=== PATIENT | female | born 1965 | race Caucasian/White ===

== ENCOUNTER 2017-12-30 07:59 | Emergency (ER) | payer MEDICAID ==
[2017-12-30] MEDS ORDERED: KETOROLAC TROMETHAMINE 60 MG/2 ML SDV IM ONE (09:11)
--- NOTE | 2017-12-30 09:15 | ER Document Report ---
HPI - HPI Patient complains to provider of: Labial pain Onset: Other - 5 days Onset/Duration: Persistent Quality of pain: Burning Pain Level: 5 Context: Patient states that she had an incision and drainage procedure performed on a Bartholin gland abscess 5 days ago at her [employer] office. Patient states she had a Word catheter placed. Patient denies any fever or urinary symptoms at this time. Patient complains of the pain at the location site and the palpation of a lump. Associated Symptoms: Other - Labial pain. denies: Fever Exacerbated by: Movement Relieved by: Denies Similar symptoms previously: No Recently seen / treated by doctor: Yes - ROS ROS below otherwise negative: Yes Systems Reviewed and Negative: Yes All other systems reviewed and negative - CONSTITUTIONAL Constitutional: DENIES: Fever, Chills - URINARY Urinary: DENIES: Dysuria, Urgency, Frequency - REPRODUCTIVE Reproductive: DENIES: : Notes: Pain to labia - MUSCULOSKELETAL Musculoskeletal: DENIES: Back Pain - DERM Skin Color: Normal Past Medical History - General Information source: Patient - Social History Smoking Status: Never Smoker Frequency of alcohol use: None Drug Abuse: None Occupation: None Lives with: Family Family History: Reviewed & Not Pertinent Patient has suicidal ideation: No Patient has homicidal ideation: No - Past Medical History Cardiac Medical History: Reports: Hx Hypertension - high cholesterol Denies: Hx Coronary Artery Disease, Hx Heart Attack Pulmonary Medical History: Reports: Hx Asthma, Hx Bronchitis, Hx Pneumonia - walking pneumonia Denies: Hx COPD Neurological Medical History: Denies: Hx Cerebrovascular Accident, Hx Seizures Endocrine Medical History: Reports: Hx Hypothyroidism Renal/ Medical History: Denies: Hx Peritoneal Dialysis Musculoskeltal Medical History: Reports Hx Arthritis - "mostly in arms", back problems, Reports Hx Musculoskeletal Trauma Psychiatric Medical History: Reports: Hx Depression Past Surgical History: Reports: Hx Cholecystectomy, Hx Gynecologic Surgery - ovarian cyst removed, batholin cyst removal, Hx Tubal Ligation - Immunizations Immunizations up to date: Yes Hx Diphtheria, Pertussis, Tetanus Vaccination: No Vertical Provider Document - CONSTITUTIONAL Agree With Documented VS: Yes Exam Limitations: No Limitations General Appearance: WD/WN, No Apparent Distress - INFECTION CONTROL TRAVEL OUTSIDE OF THE [place] IN LAST 30 DAYS: No - HEENT HEENT: Atraumatic, Normocephalic - NECK Neck: Normal Inspection, Supple - RESPIRATORY Respiratory: Breath Sounds Normal, No Respiratory Distress O2 Sat by Pulse Oximetry: 98 - CARDIOVASCULAR Cardiovascular: Regular Rate, Regular Rhythm - REPRODUCTIVE Female Genitalia: Abnormal Inspection - Patient with Word catheter to Bartholin' s gland area on the right side, minimal drainage noted from area, no surrounding erythema - BACK Back: Normal Inspection - MUSCULOSKELETAL/EXTREMETIES Musculoskeletal/Extremeties: KAELYN GOMES - NEURO Level of Consciousness: Awake, Alert, Appropriate Motor/Sensory: No Motor Deficit - DERM Integumentary: Warm, Dry, No Rash Course - Re-evaluation Re-evalutation: 12/30/17 09:12 Patient with a normal appearance to Word catheter and what appears to be a resolving Bartholin's gland abscess. No concern for worsening abscess or cellulitis at this time. Suspect that patient's pain symptoms are most likely attributed to the Word catheter itself. Lump that patient reports is the balloon to the Word catheter. 12/30/17 09:14 Controlled substance database reviewed 12/30/17 18:06 - Vital Signs Vital signs: Temp Pulse Resp BP Pulse Ox 98.5 F 76 20 145/92 H 98 12/30/17 08:04 12/30/17 08:04 12/30/17 08:04 12/30/17 08:04 12/30/17 08:04 Discharge - Discharge Clinical Impression: Elevated blood pressure reading, pain from word catheter , hx bartholin gland abscess Condition: Stable Disposition: HOME, SELF-CARE Instructions: Oral Narcotic Medication ([facility]), Toradol Injection ([facility]) Additional Instructions: Return immediately for any new or worsening symptoms Followup with your [employer] care provider, call tomorrow to make a followup appointment Prescriptions: Oxycodone HCl/Acetaminophen [Percocet 5-325 mg Tablet] 1 tab PO ASDIR PRN #12 tablet PRN Reason: Forms: Elevated Blood Pressure Referrals: EMIL VELAZQUEZ MD [Primary Care Provider] - Follow up tomorrow
[2017-12-30 09:59] VITALS: BP 121/84
== END 2017-12-30 09:59 | disposition home or self-care (01) ==
LOC: ER 07:59
DX: N75.1 Abscess of Bartholin's gland (principal); I10 Essential (primary) hypertension; E78.00 Pure hypercholesterolemia, unspecified; Z90.49 Acquired absence of other specified parts of digestive tract; Z98.51 Tubal ligation status
CPT/HCPCS: 99283; J1885

== ENCOUNTER 2018-02-15 12:30 | Observation (INO) | payer MEDICAID ==
[2018-02-15] MEDS ORDERED: ASPIRIN 81 MG TABLET, CHEWABLE PO ONE (12:56)
--- NOTE | 2018-02-15 13:03 | ER Document Report ---
ED Medical Screen (RME) - General Mode of Arrival: Ambulatory Information source: Patient TRAVEL OUTSIDE OF THE [place] IN LAST 30 DAYS: No - HPI Patient complains to provider of: Left chest pain Onset: Other - 3 weeks ago Associated Symptoms: Other - see notes above <MANAV MARR - Last Filed: 02/15/18 12:57> <APOORVALEVIDEEPA - Last Filed: 02/15/18 15:31> - General Chief Complaint: Chest Pain Stated Complaint: CHEST PAIN Time Seen by Provider: 02/15/18 12:51 Notes: 52 year old female with history of hypothyroidism (medicated with Levothyroxine) , hypertension, and borderline diabetes presents to the ED complaining of intermittent left chest pain that started 3 weeks ago and worsened last night. Patient describes the pain as a pressure. Patient additionally complains of headache and shortness of breath, but denies nausea, vomiting, or diaphoresis. (MANAV MARR) - Related Data Allergies/Adverse Reactions: codeine [Codeine] Allergy (Severe, Verified 02/15/18 12:57) nausea, dizzy Past Medical History - General Information source: Patient - Past Medical History Cardiac Medical History: Reports: Hx Hypertension - high cholesterol Denies: Hx Coronary Artery Disease, Hx Heart Attack Pulmonary Medical History: Reports: Hx Asthma, Hx Bronchitis, Hx Pneumonia - walking pneumonia Denies: Hx COPD Neurological Medical History: Denies: Hx Cerebrovascular Accident, Hx Seizures Endocrine Medical History: Reports: Hx Hypothyroidism Renal/ Medical History: Denies: Hx Peritoneal Dialysis Musculoskeltal Medical History: Reports Hx Arthritis - "mostly in arms", back problems, Reports Hx Musculoskeletal Trauma Psychiatric Medical History: Reports: Hx Depression Past Surgical History: Reports: Hx Cholecystectomy, Hx Gynecologic Surgery - ovarian cyst removed, batholin cyst removal, Hx Tubal Ligation - Immunizations Immunizations up to date: Yes Hx Diphtheria, Pertussis, Tetanus Vaccination: No <MANAV MARR - Last Filed: 02/15/18 12:57> Review of Systems - Review of Systems Constitutional: No symptoms reported. denies: Diaphoresis EENT: No symptoms reported Cardiovascular: See HPI, Chest pain Respiratory: See HPI, Short of breath Gastrointestinal: No symptoms reported. denies: Nausea, Vomiting Genitourinary: No symptoms reported Female Genitourinary: No symptoms reported Musculoskeletal: No symptoms reported Skin: No symptoms reported Hematologic/Lymphatic: No symptoms reported Neurological/Psychological: See HPI, Headaches -: Yes All other systems reviewed and negative <MANAV MARR - Last Filed: 02/15/18 12:57> Physical Exam - General General appearance: Alert In distress: None - HEENT Head: Normocephalic, Atraumatic Eyes: Normal Extraocular movements intact: Yes Pupils: PERRL - Respiratory Respiratory status: No respiratory distress Breath sounds: Normal - Cardiovascular Rhythm: Regular Heart sounds: Normal auscultation Murmur: No <MANVA MARR - Last Filed: 02/15/18 12:57> - Vital signs Vitals: Temp Pulse Resp BP Pulse Ox 98.3 F 86 18 132/97 H 97 02/15/18 12:45 02/15/18 12:45 02/15/18 12:45 02/15/18 12:45 02/15/18 12:45 Course - Laboratory Result Diagrams: 02/15/18 13:15 02/15/18 13:15 <DEEPA PINTO - Last Filed: 02/15/18 15:31> - Vital Signs Vital signs: Temp Pulse Resp BP Pulse Ox 98.3 F 86 18 132/97 H 97 02/15/18 12:45 02/15/18 12:45 02/15/18 12:45 02/15/18 12:45 02/15/18 12:45 - Laboratory Laboratory results interpreted by me: 02/15/18 02/15/18 13:15 13:15 RDW 15.0 H Calcium 10.3 H Scribe Documentation - Scribe Written by Benja:: Benja Witt, 02/15/2018 1330 acting as scribe for :: Ludy <MANAV MARR - Last Filed: 02/15/18 12:57>
[2018-02-15 13:31] LABS: ABSOLUTE BASOPHILS # (AUTO) 0.1 10^3/uL (0.0-0.2); ABSOLUTE EOSINOPHILS # (AUTO) 0.2 10^3/uL (0.0-0.6); ABSOLUTE MONOCYTES (AUTO) 0.6 10^3/uL (0.1-1.4); ABSOLUTE NEUT (AUTO) 3.5 10^3/uL (1.7-8.2); BASOPHILS % (AUTO) 1.1 % (0-2); EOSINOPHILS % (AUTO) 2.6 % (0-6); HEMATOCRIT 44.7 % (36.0-47.0); HEMOGLOBIN 15.1 g/dL (12.0-15.5); LYMPHOCYTES % (AUTO) 31.9 % (13-45); MEAN CORPUSCULAR HEMOGLOBIN 29.1 pg (27.0-33.4); MEAN CORPUSCULAR HGB CONC 33.7 g/dL (32.0-36.0); MEAN CORPUSCULAR VOLUME 86 fl (80-97); MONOCYTES % (AUTO) 9.9 % (3-13); PLATELET COUNT 433 10^3/uL (150-450); RED BLOOD COUNT 5.18 10^6/uL (3.72-5.28); SEGMENTED NEUTROPHILS % (AUTO) 54.5 % (42-78); TOTAL CELLS COUNTED % (AUTO) 100 %; WHITE BLOOD COUNT 6.3 10^3/uL (4.0-10.5)
[2018-02-15] MEDS ORDERED: NITROGLYCERIN 0.4 MG/TAB 25 TAB/BOTTLE SL ONE (13:33)
--- NOTE | 2018-02-15 13:34 | ER Document Report ---
ED General - General Chief Complaint: Chest Pain Stated Complaint: CHEST PAIN Time Seen by Provider: 02/15/18 12:51 Mode of Arrival: Ambulatory TRAVEL OUTSIDE OF THE [place] IN LAST 30 DAYS: No - HPI Notes: 52-year-old female with a past medical history of hypothyroidism presents today with complaints of left-sided chest pain she describes as pressure and heaviness with shortness of breath that started approximately 2 hours ago. Patient states she did have an episode last night which lasted about an hour. Patient reports she has had many episodes of this chest pain for the last 2 months, has never been seen by her primary provider for this until 2 weeks ago, she did see her primary care for something else, states she mentioned she had this chest pain and they did set her up for cardiac evaluation with [facility] for March 11. Patient has not tried any [id number] medication for this pain. Patient states chest pain is only on her left, pain does not radiate to her shoulder trauma or back. Patient states she only has shortness of breath when she is having chest pain. Patient reports she was a former smoker, smoked off and on for "years". Father has a history of hypertension, hyperlipidemia, CAD and [place]. Mother's history only positive for liver cancer. - Related Data Allergies/Adverse Reactions: codeine [Codeine] Allergy (Severe, Verified 02/15/18 12:57) nausea, dizzy Past Medical History - General Information source: Patient - Social History Smoking Status: Former Smoker Chew tobacco use (# tins/day): No Frequency of alcohol use: None Drug Abuse: None Family History: Reviewed & Not Pertinent Patient has suicidal ideation: No Patient has homicidal ideation: No - Past Medical History Cardiac Medical History: Reports: Hx Hypertension - high cholesterol Denies: Hx Coronary Artery Disease, Hx Heart Attack Pulmonary Medical History: Reports: Hx Asthma, Hx Bronchitis, Hx Pneumonia - walking pneumonia Denies: Hx COPD Neurological Medical History: Denies: Hx Cerebrovascular Accident, Hx Seizures Endocrine Medical History: Reports: Hx Hypothyroidism Renal/ Medical History: Denies: Hx Peritoneal Dialysis Musculoskeltal Medical History: Reports Hx Arthritis - "mostly in arms", back problems, Reports Hx Musculoskeletal Trauma Psychiatric Medical History: Reports: Hx Depression Past Surgical History: Reports: Hx Cholecystectomy, Hx Gynecologic Surgery - ovarian cyst removed, batholin cyst removal, Hx Tubal Ligation - Immunizations Immunizations up to date: Yes Hx Diphtheria, Pertussis, Tetanus Vaccination: No Review of Systems - Review of Systems Notes: REVIEW OF SYSTEMS: CONSTITUTIONAL : Denies fever, chills, or sweats. Denies recent illness. EENT: Denies eye, ear, throat, or mouth pain or symptoms. Denies nasal or sinus congestion or discharge. Denies throat, tongue, or mouth swelling or difficulty swallowing. CARDIOVASCULAR: reports. Denies palpitations or racing or irregular heart beat. Denies ankle edema. RESPIRATORY: Denies cough, cold, or chest congestion. Denies shortness of breath, difficulty breathing, or wheezing. GASTROINTESTINAL: Denies abdominal pain or distention. Denies nausea, vomiting , or diarrhea. Denies blood in vomitus, stools, or per rectum. Denies black, tarry stools. Denies constipation. GENITOURINARY: Denies difficulty urinating, painful urination, burning, frequency, blood in urine, or discharge. FEMALE GENITOURINARY: Denies vaginal bleeding, heavy or abnormal periods, irregular periods. Denies vaginal discharge or odor. MUSCULOSKELETAL: Denies back or neck pain or stiffness. Denies joint pain or swelling. SKIN: Denies rash, lesions or sores. HEMATOLOGIC : Denies easy bruising or bleeding. LYMPHATIC: Denies swollen, enlarged glands. NEUROLOGICAL: Denies confusion or altered mental status. Denies passing out or loss of consciousness. Denies dizziness or lightheadedness. Denies headache. Denies weakness or paralysis or loss of use of either side. Denies problems with gait or speech. Denies sensory loss, numbness, or tingling. Denies seizures. PSYCHIATRIC: Denies anxiety or stress. Denies depression, suicidal ideation, or homicidal ideation. ALL OTHER SYSTEMS REVIEWED AND NEGATIVE. PHYSICAL EXAMINATION: GENERAL: Well-appearing, well-nourished and in no acute distress. HEAD: Atraumatic, normocephalic. EYES: Pupils equal round and reactive to light, extraocular movements intact, conjunctiva are normal. ENT: Nares patent, oropharynx clear without exudates. Moist mucous membranes. NECK: Normal range of motion, supple without lymphadenopathy LUNGS: Breath sounds clear to auscultation bilaterally and equal. No wheezes rales or rhonchi. HEART: Regular rate and rhythm without murmurs ABDOMEN: Soft, nontender, nondistended abdomen. No guarding, no rebound. No masses appreciated. Female : deferred Musculoskeletal: Normal range of motion, no pitting or edema. No cyanosis. NEUROLOGICAL: Cranial nerves grossly intact. Normal speech, normal gait. Normal sensory, motor exams PSYCH: Normal mood, normal affect. SKIN: Warm, Dry, normal turgor, no rashes or lesions noted. Dictation was performed using [employer] voice recognition software Physical Exam - Vital signs Vitals: Temp Pulse Resp BP Pulse Ox 98.3 F 86 18 132/97 H 97 02/15/18 12:45 02/15/18 12:45 02/15/18 12:45 02/15/18 12:45 02/15/18 12:45 Course - Re-evaluation Re-evalutation: 02/15/18 16:53 A healthy 52-year-old female presents today with complaints of left-sided chest pain that started today. She has been having episodic chest pain for the last 2 months, has never had this evaluated by a provider. Her primary care provider did 2 weeks ago send a referral to [facility] cardiology for a consult. CBC negative for leukocytosis or anemia, CMP negative for hepatic or renal dysfunction, electrolytes normal. EKG negative for STEMI. 1st set of cardiac enzymes negative, chest x-ray negative for any acute findings. patient had relief with nitroglycerin and baby aspirin. Due to patient having chest pain relieved with nitroglycerin, patient benefit from further evaluation of unstable angina. Discussed case with hospitalist, basilic sounds, [employer] [id number], patient will be admitted to observation for further evaluation. 02/15/18 16:58 - Vital Signs Vital signs: Temp Pulse Resp BP Pulse Ox 98.3 F 86 18 132/97 H 97 02/15/18 12:45 02/15/18 12:45 02/15/18 12:45 02/15/18 12:45 02/15/18 12:45 - Laboratory Result Diagrams: 02/15/18 13:15 02/15/18 13:15 Laboratory results interpreted by me: 02/15/18 02/15/18 13:15 13:15 RDW 15.0 H Calcium 10.3 H - EKG Interpretation by Mo EKG shows normal: Sinus rhythm Rate: Normal Rhythm: NSR When compared to previous EKG there are: No significant change - non specific ST segment changes Discharge - Discharge Clinical Impression: Chest pain at rest, Angina at rest Condition: Good Disposition: ADMITTED OBSERVATION Admitting Provider: Hospitalist - Margarita Pabon NP Referrals: EMIL VELAZQUEZ MD [Primary Care Provider] - Follow up as needed
[2018-02-15 13:55] LABS: ALANINE AMINOTRANSFERASE 35 U/L (9-52); ALBUMIN 4.9 g/dL (3.5-5.0); ALKALINE PHOSPHATASE 103 U/L (38-126); ANION GAP 13 (5-19); ASPARTATE AMINO TRANSFERASE 26 U/L (14-36); BILIRUBIN,DIRECT 0.2 mg/dL (0.0-0.4); BILIRUBIN,TOTAL 0.5 mg/dL (0.2-1.3); BLOOD UREA NITROGEN 14 mg/dL (7-20); CALCIUM 10.3 mg/dL (8.4-10.2); CARBON DIOXIDE 29 mmol/L (22-30); CHLORIDE 103 mmol/L (98-107); CREATINE KINASE 72 U/L (30-135); GLUCOSE 101 mg/dL (75-110); POTASSIUM 4.6 mmol/L (3.6-5.0); SODIUM 144.6 mmol/L (137-145); TOTAL PROTEIN 7.9 g/dL (6.3-8.2)
[2018-02-15 14:07] LABS: CREATINE KINASE MB 0.24 ng/mL (<4.55); TROPONIN I < 0.012 ng/mL
--- NOTE | 2018-02-15 14:07 | RADIOLOGY REPORT (SQ) ---
EXAM DESCRIPTION: CHEST SINGLE VIEW COMPLETED DATE/TIME: 02/15/2018 1:55 pm REASON FOR STUDY: left sided chest pain COMPARISON: 01/20/2016 EXAM PARAMETERS: NUMBER OF VIEWS: One view. TECHNIQUE: Single frontal radiographic view of the chest acquired. RADIATION DOSE: NA LIMITATIONS: None. FINDINGS: LUNGS AND PLEURA: No opacities, masses or pneumothorax. No pleural effusion. MEDIASTINUM AND HILAR STRUCTURES: No masses. Contour normal. HEART AND VASCULAR STRUCTURES: Heart normal in size. Normal vasculature. BONES: No acute findings. HARDWARE: None in the chest. OTHER: No other significant finding. IMPRESSION: NO ACUTE RADIOGRAPHIC FINDING IN THE CHEST. TECHNICAL DOCUMENTATION: JOB ID: [id number] [employer]- All Rights Reserved Reading location - IP/workstation name: [email or web address]
--- NOTE | 2018-02-15 15:16 | EKG REPORT ---
SEVERITY:- NORMAL ECG - SINUS RHYTHM : Confirmed by: Jeanne Shah 15-Feb-2018 15:15:36
[2018-02-15] MEDS ORDERED: ALPRAZOLAM 0.5 MG TABLET PO ONE (17:49)
[2018-02-15] MEDS ORDERED: IBUPROFEN 600 MG TABLET PO ONE (18:10)
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
[2018-02-15] MEDS ORDERED: CYCLOBENZAPRINE HCL 10 MG TABLET PO PRN (18:11)
[2018-02-15] MEDS ORDERED: ALPRAZOLAM 0.5 MG TABLET PO PRN (18:15)
[2018-02-15] MEDS: NITROGLYCERIN 0.4 MG/TAB 25 TAB/BOTTLE SL PRN (21:29)
[2018-02-15 23:54] LABS: CREATINE KINASE MB < 0.22 ng/mL (<4.55); TROPONIN I < 0.012 ng/mL
[2018-02-16] MEDS ORDERED: ALPRAZOLAM 0.5 MG TABLET PO PRN (01:00)
[2018-02-16] MEDS ORDERED: CYCLOBENZAPRINE HCL 10 MG TABLET PO PRN (01:00)
[2018-02-16 06:06] LABS: ABSOLUTE BASOPHILS # (AUTO) 0.1 10^3/uL (0.0-0.2); ABSOLUTE EOSINOPHILS # (AUTO) 0.2 10^3/uL (0.0-0.6); ABSOLUTE LYMPHOCYTES (AUTO) 2.6 10^3/uL (0.5-4.7); ABSOLUTE MONOCYTES (AUTO) 0.8 10^3/uL (0.1-1.4); ABSOLUTE NEUT (AUTO) 3.5 10^3/uL (1.7-8.2); EOSINOPHILS % (AUTO) 2.9 % (0-6); HEMATOCRIT 40.1 % (36.0-47.0); HEMOGLOBIN 13.6 g/dL (12.0-15.5); LYMPHOCYTES % (AUTO) 36.4 % (13-45); MEAN CORPUSCULAR HGB CONC 33.9 g/dL (32.0-36.0); MEAN CORPUSCULAR VOLUME 86 fl (80-97); MONOCYTES % (AUTO) 11.5 % (3-13); PLATELET COUNT 395 10^3/uL (150-450); RED BLOOD COUNT 4.69 10^6/uL (3.72-5.28); RED CELL DISTRIBUTION WIDTH 14.8 % (11.5-14.0); SEGMENTED NEUTROPHILS % (AUTO) 48.2 % (42-78); TOTAL CELLS COUNTED % (AUTO) 100 %; WHITE BLOOD COUNT 7.2 10^3/uL (4.0-10.5)
[2018-02-16 06:32] LABS: ANION GAP 13 (5-19); BLOOD UREA NITROGEN 17 mg/dL (7-20); CALCIUM 9.9 mg/dL (8.4-10.2); CARBON DIOXIDE 26 mmol/L (22-30); CHLORIDE 104 mmol/L (98-107); CHOLESTEROL 182.22 mg/dL (0-200); GLUCOSE 95 mg/dL (75-110); POTASSIUM 4.5 mmol/L (3.6-5.0); TRIGLYCERIDES 198 mg/dL (<150)
[2018-02-16 06:43] LABS: CREATINE KINASE MB 0.23 ng/mL (<4.55); DIRECT LDL 78 mg/dL (<100)
[2018-02-16 06:47] LABS: TROPONIN I < 0.012 ng/mL; VLDL CHOLESTEROL 39.6 mg/dL (10-31)
[2018-02-16] MEDS: ASPIRIN 81 MG TABLET, ENT COATED PO SCH (09:12)
[2018-02-16 12:12] LABS: CREATINE KINASE MB 0.31 ng/mL (<4.55)
[2018-02-16 12:13] LABS: TROPONIN I < 0.012 ng/mL
[2018-02-16] MEDS ORDERED: LEVOTHYROXINE SODIUM 0.05 MG TABLET PO ONE (13:00)
[2018-02-16] MEDS: GABAPENTIN 300 MG CAPSULE PO SCH ×2 (14:13→21:03)
[2018-02-16] MEDS ORDERED: IBUPROFEN 600 MG TABLET PO PRN (14:22)
--- NOTE | 2018-02-16 14:31 | PDOC PROGRESS REPORT ---
Subjective Progress Note for:: 02/16/18 Reason For Visit: CHEST PAIN Physical Exam Vital Signs: Temp Pulse Resp BP Pulse Ox 98.6 F 69 16 100/62 99 02/16/18 11:16 02/16/18 11:16 02/16/18 11:16 02/16/18 11:16 02/16/18 11:16 Intake & Output 02/15/18 02/16/18 02/17/18 06:59 06:59 06:59 Intake Total 450 Output Total 300 Balance 150 Weight 94.3 kg Results Laboratory Results: 02/16/18 04:58 02/16/18 04:58 02/16/18 02/16/18 04:58 04:58 WBC 7.2 RBC 4.69 Hgb 13.6 Hct 40.1 MCV 86 MCH 29.0 MCHC 33.9 RDW 14.8 H Plt Count 395 Seg Neutrophils % 48.2 Lymphocytes % 36.4 Monocytes % 11.5 Eosinophils % 2.9 Basophils % 1.0 Absolute Neutrophils 3.5 Absolute Lymphocytes 2.6 Absolute Monocytes 0.8 Absolute Eosinophils 0.2 Absolute Basophils 0.1 Sodium 143.0 Potassium 4.5 Chloride 104 Carbon Dioxide 26 Anion Gap 13 BUN 17 Creatinine 0.82 Est GFR ( Amer) > 60 Est GFR (Non-Af Amer) > 60 Glucose 95 Calcium 9.9 Phosphorus 6.0 H Triglycerides 198 H Cholesterol 182.22 LDL Cholesterol Direct 78 VLDL Cholesterol 39.6 H HDL Cholesterol 66 02/15/18 02/16/18 02/16/18 23:05 04:58 11:15 CK-MB (CK-2) < 0.22 0.23 0.31 Troponin I < 0.012 < 0.012 < 0.012 Impressions: Chest X-Ray 02/15/18 12:56 IMPRESSION: NO ACUTE RADIOGRAPHIC FINDING IN THE CHEST. Assessment & Plan - Diagnosis (1) Chest pain Qualifiers: Chest pain type: unspecified Qualified Code(s): R07.9 - Chest pain, unspecified Is this a current diagnosis for this admission?: Yes Plan: Unclear etiology. The patient presented to the emergency department with left- sided chest PRESSURE, intermittent in nature, radiating through to her left scapula. Patient states that she has been experiencing this type of chest pain on and off for several months EKG showed normal sinus rhythm, no evidence of acute ischemia or infarction. Troponin<0.012., no longer trending Cardiology consulted Plan for Cardiolite stress test and echocardiogram tomorrow Sublingual nitro and IV morphine available prn for chest pain PRN xanax ordered for anxiety PRN motrin and flexeril for muscular pain We will check cholesterol and TSH (2) Anxiety Is this a current diagnosis for this admission?: Yes Plan: The patient admits to severe anxiety whenever in an elevator. She states that she has panic attacks and becomes very claustrophobic whenever in an elevator. PRN Xanax ordered for anxiety. (3) Hypothyroid Qualifiers: Hypothyroidism type: unspecified Qualified Code(s): E03.9 - Hypothyroidism , unspecified Is this a current diagnosis for this admission?: Yes Plan: Patient reports history of hypothyroidism. Continue home dose of Synthroid. - Time Time Spent with patient: 15-24 minutes Medications reviewed and adjusted accordingly: Yes Anticipated discharge: Home Within: within 48 hours - Inpatient Certification Based on my medical assessment, after consideration of the patient's comorbidities, presenting symptoms, or acuity I expect that the services needed warrant INPATIENT care.: Yes I certify that my determination is in accordance with my understanding of Medicare's requirements for reasonable and necessary INPATIENT services [42 CFR 412.3e].: Yes Medical Necessity: Risk of Complication if Not Cared For in Hospital - Plan Summary Plan Summary: The plan for this patient is to complete her cardiac workup. Barring any complications, the patient will be discharged home with follow-up to her green meat grader
[2018-02-16] MEDS: NITROGLYCERIN 0.4 MG/TAB 25 TAB/BOTTLE SL PRN (14:49)
[2018-02-17] MEDS ORDERED: LEVOTHYROXINE SODIUM 0.05 MG TABLET PO SCH (06:00)
[2018-02-17] MEDS: GABAPENTIN 300 MG CAPSULE PO SCH ×2 (06:15→13:52)
[2018-02-17 07:05] LABS: HEMATOCRIT 41.9 % (36.0-47.0); HEMOGLOBIN 14.4 g/dL (12.0-15.5); MEAN CORPUSCULAR HEMOGLOBIN 29.7 pg (27.0-33.4); MEAN CORPUSCULAR HGB CONC 34.3 g/dL (32.0-36.0); MEAN CORPUSCULAR VOLUME 86 fl (80-97); PLATELET COUNT 388 10^3/uL (150-450); RED BLOOD COUNT 4.84 10^6/uL (3.72-5.28); RED CELL DISTRIBUTION WIDTH 15.1 % (11.5-14.0); WHITE BLOOD COUNT 7.7 10^3/uL (4.0-10.5)
[2018-02-17 07:23] LABS: ANION GAP 9 (5-19); BLOOD UREA NITROGEN 15 mg/dL (7-20); CALCIUM 9.9 mg/dL (8.4-10.2); CARBON DIOXIDE 30 mmol/L (22-30); CHLORIDE 104 mmol/L (98-107); GLUCOSE 93 mg/dL (75-110); PHOSPHORUS 4.7 mg/dL (2.5-4.5); POTASSIUM 5.4 mmol/L (3.6-5.0); SODIUM 143.4 mmol/L (137-145)
[2018-02-17] MEDS: ASPIRIN 81 MG TABLET, ENT COATED PO SCH (10:52)
[2018-02-17] MEDS ORDERED: REGADENOSON INJ 0.4 MG/5 ML DISP.SYRIN IV ONE (13:30)
[2018-02-17] MEDS ORDERED: AMINOPHYLLINE INJ/PF 250 MG/10 ML SDV IV ONE (13:30)
--- NOTE | 2018-02-17 17:16 | PDOC PROGRESS REPORT ---
Subjective Progress Note for:: 02/17/18 Subjective:: REMY SILVA is a 52 year old woman who presented to the emergency department for chest pain. She has been admitted to [facility] for chest pain observation. The patient seen this afternoon following her stress test and echocardiogram. She is in good spirits, she has no complaints this morning. Reason For Visit: CHEST PAIN Physical Exam Vital Signs: Temp Pulse Resp BP Pulse Ox 98.1 F 100 17 100/72 95 02/17/18 15:50 02/17/18 15:50 02/17/18 15:50 02/17/18 15:50 02/17/18 15:50 Intake & Output 02/16/18 02/17/18 02/18/18 06:59 06:59 06:59 Intake Total 450 1040 466 Output Total 300 1400 300 Balance 150 -360 166 Weight 94.3 kg 95.6 kg General appearance: PRESENT: no acute distress Head exam: PRESENT: atraumatic Eye exam: PRESENT: conjunctiva pink Mouth exam: PRESENT: moist Neck exam: PRESENT: full ROM Respiratory exam: PRESENT: clear to auscultation liang, symmetrical, unlabored Cardiovascular exam: PRESENT: +S1, +S2 Pulses: PRESENT: normal radial pulses, normal dorsalis pedis pul GI/Abdominal exam: PRESENT: normal bowel sounds, soft Rectal exam: PRESENT: deferred Extremities exam: PRESENT: full ROM Musculoskeletal exam: PRESENT: ambulatory, full ROM Neurological exam: PRESENT: alert, awake, oriented to person, oriented to place , oriented to time, oriented to situation Psychiatric exam: PRESENT: appropriate affect Skin exam: PRESENT: normal color Results Laboratory Results: 02/17/18 04:42 02/17/18 04:42 02/17/18 02/17/18 04:42 04:42 WBC 7.7 RBC 4.84 Hgb 14.4 Hct 41.9 MCV 86 MCH 29.7 MCHC 34.3 RDW 15.1 H Plt Count 388 Sodium 143.4 Potassium 5.4 H Chloride 104 Carbon Dioxide 30 Anion Gap 9 BUN 15 Creatinine 0.88 Est GFR ( Amer) > 60 Est GFR (Non-Af Amer) > 60 Glucose 93 Calcium 9.9 Phosphorus 4.7 H Magnesium 2.0 02/15/18 02/16/18 02/16/18 23:05 04:58 11:15 CK-MB (CK-2) < 0.22 0.23 0.31 Troponin I < 0.012 < 0.012 < 0.012 Impressions: Chest X-Ray 02/15/18 12:56 IMPRESSION: NO ACUTE RADIOGRAPHIC FINDING IN THE CHEST. Status: Imported from PACS Assessment & Plan - Diagnosis (1) Chest pain Qualifiers: Chest pain type: unspecified Qualified Code(s): R07.9 - Chest pain, unspecified Is this a current diagnosis for this admission?: Yes Plan: Unclear etiology. The patient presented to the emergency department with left- sided chest PRESSURE, intermittent in nature, radiating through to her left scapula. Patient states that she has been experiencing this type of chest pain on and off for several months EKG showed normal sinus rhythm, no evidence of acute ischemia or infarction. Troponin<0.012., no longer trending Cardiology consulted Cardiolite stress test and echocardiogram completed today, results PENDING Sublingual nitro and IV morphine available prn for chest pain PRN xanax ordered for anxiety PRN motrin and flexeril for muscular pain We will check cholesterol and TSH (2) Anxiety Is this a current diagnosis for this admission?: Yes Plan: The patient admits to severe anxiety whenever in an elevator. She states that she has panic attacks and becomes very claustrophobic whenever in an elevator. PRN Xanax ordered for anxiety. (3) Hypothyroid Qualifiers: Hypothyroidism type: unspecified Qualified Code(s): E03.9 - Hypothyroidism , unspecified Is this a current diagnosis for this admission?: Yes Plan: Patient reports history of hypothyroidism. Continue home dose of Synthroid. - Time Time Spent with patient: 15-24 minutes Medications reviewed and adjusted accordingly: Yes Anticipated discharge: Home Within: within 24 hours - Inpatient Certification Based on my medical assessment, after consideration of the patient's comorbidities, presenting symptoms, or acuity I expect that the services needed warrant INPATIENT care.: Yes I certify that my determination is in accordance with my understanding of Medicare's requirements for reasonable and necessary INPATIENT services [42 CFR 412.3e].: Yes Medical Necessity: Risk of Complication if Not Cared For in Hospital - Plan Summary Plan Summary: Following the results of the patient's echocardiogram and Cardiolite stress test , plan to discharge the patient home
--- NOTE | 2018-02-17 17:36 | DRAGON STRESS TEST REPORT ---
INTRAVENOUS LEXISCAN CARDIOLITE STRESS TEST USING SINGLE PHOTON EMMISION COMPUTERIZED TOMOGRAPHIC. DATE OF PROCEDURE: February 17, 2018, INDICATION : Chest pain CARDIAC RISK FACTORS: Family history of CAD RESTING EKG: Sinus rhythm without any baseline ST-T wave changes STRESS EKG: No significant ST segment changes noted with LexiScan bolus REASON FOR TERMINATION: Protocol. PROCEDURE REPORT: Baseline heart rate 86 beats per minute with blood pressure of 109/76. Patient had no significant complaints. Patient was bolused with Lexiscan 0.4 mg intravenously followed by saline bolus. Heart rate at 2 minutes post bolus 126 with a blood pressure of 125/56. 3 minutes post bolus heart rate 101 with blood pressure of 137/66. No significant EKG changes were noted. Patient had no significant complaints during the procedure or postprocedure. Patient injected with Aminophyllin 75 mg at 3 minutes or later after Lexiscan bolus. CONCLUSIONS: Normal EKG and hemodynamic response to IV LexiScan. NUCLEAR DATA: At rest the patient was given 14.35 millicuries of technetium 99 sestamibi injected intravenously. As per protocol rest gated SPECT images were obtained. On day of stress test, the patient was given intravenous LexiScan at a dose of 0.4 mg in 5 mL intravenously, followed by flush with normal saline. Subsequently the stress dose of 40.7 millicuries of technetium 99 sestamibi was injected intravenously. As per protocol stress gated images were obtained. NUCLEAR INTERPRETATION: Both raw and processed data were used for interpretation. Visual, qualitative, computer-generated quantitative data was used. There was good myocardial uptake of technetium compound. Motion artifact and soft tissue attenuations were noted. Increased visceral uptake was noted. No definitive areas of transient perfusion defect noted, No definitive areas of fixed perfusion defect or scars noted. EKG gated imaging showed LV EF at 63 %, rest and stress gated EF similar visually. T. I D. ratio was 1.30. Lung heart ratio noted to be within normal limits 0.31. No significant extracardiac and abnormal radiotracer activities were noted. RV free wall uptake was noted to be WNL. IMPRESSION: Also refer to comments under nuclear interpretation. Also test results needs to be interpreted in the context of pretest probability. 1. No definitive areas of transient perfusion defect noted. 2. There is no definitive scintigraphic evidence of myocardial infarction/scar. 3. EKG gated imaging shows left ventricular ejection fraction of approx. 63 %. 4. Borderline transient ischemic dilatation noted. Most recent literature review suggest no significant increased cardiovascular event rate in the absence of perfusion abnormalities. Clinical correlation requested as occasionally single vessel disease or balanced ischemia could be missed. In approximately 10% of the cases Lexiscan may not cause adequate vasodilatory stress. RECOMMENDATIONS: Aggressive risk factor modification and medical management. Further evaluation may be needed if continued symptoms or other high risk indicators are noted on clinical evaluation. Close cardiology follow-up is also recommended. Clinical correlation with echocardiogram derived ejection fraction. Inability to exercise by itself can lead to increased cardiovascular event risks. Consider cardiology consultation and or follow-up if clinically indicated. I am available for cardiology evaluation and consultation if requested by the skein winding operator, unless patient already has a crutching contractor. ALEX
--- NOTE | 2018-02-17 17:42 | XCELERA REPORT ---
[address] [address] Transthoracic Echocardiogram Report Name: REMY SILVA Age: 52 yrs Gender: Female : 1965 Patient Status: Inpatient Patient Location: [address] [place] [address] Study Date: 02/17/2018 01:43 PM Height: 65 in Weight: 207 lb BSA: 2.0 m2 Procedure: A complete two-dimensional transthoracic echocardiogram was performed (2D, M-mode, spectral and color flow Doppler). The study was technically adequate with some images being suboptimal in quality. Reason For Study: chest pain Ordering Physician: KTAIA PORTILLO Performed By: Nancy Sharma Interpretation Summary The left ventricular ejection fraction is normal. Doppler measurements suggest pseudonormalized left ventricular relaxation, which is associated with grade II/IV or mild to moderate diastolic dysfunction There is borderline concentric left ventricular hypertrophy. The left ventricle is grossly normal size. Wall motion cannot be accurately commented on, but no definite regional wall motion abnormalities noted. The right ventricle is grossly normal size. The right ventricular systolic function is normal. The right atrium is normal. Borderline left atrial enlargement. There is a trace amount of mitral regurgitation There is no mitral valve stenosis. There is no aortic valve stenosis There is a trace amount of aortic regurgitation There is a trace or physiologic amount of tricuspid regurgitation Tricuspid regurgitation jet envelope not well defined to measure RV systolic pressure accurately. The aortic root is not well visualized but is probably normal size. The inferior vena cava appeared normal and decreased > 50% with respiration (RAP 5-10 mmHg) Minimal pericardial effusion. MMode/2D Measurements & Calculations RVDd: 3.1 cm LVIDd: 4.0 cm FS: 25.6 % Ao root diam: 2.8 cm IVSd: 0.86 cm LVIDs: 3.0 cm EDV(Teich): 69.5 ml LVPWd: 0.79 cm ESV(Teich): 34.1 ml Ao root area: 6.0 cm2 EF(Teich): 51.0 % Doppler Measurements & Calculations MV E max mark: MV dec slope: Ao V2 max: LV V1 max P.5 cm/sec 151.9 cm/sec 5.6 mmHg MV A max mark: 220.1 cm/sec2 Ao max PG: LV V1 max: 87.2 cm/sec MV dec time: 9.2 mmHg 118.8 cm/sec MV E/A: 0.72 0.28 sec PA V2 max: 88.6 cm/sec PA max P.1 mmHg Left Ventricle The left ventricle is grossly normal size. There is borderline concentric left ventricular hypertrophy. The left ventricular ejection fraction is normal. Doppler measurements suggest pseudonormalized left ventricular relaxation, which is associated with grade II/IV or mild to moderate diastolic dysfunction. Wall motion cannot be accurately commented on, but no definite regional wall motion abnormalities noted. Right Ventricle The right ventricle is grossly normal size. There is normal right ventricular wall thickness. The right ventricular systolic function is normal. Atria The right atrium is normal. Borderline left atrial enlargement. Interarterial septum not well visualized and not well dopplered. Cannot comment on ASD/PFO presence. Mitral Valve The mitral valve is grossly normal. There is no mitral valve stenosis. There is a trace amount of mitral regurgitation. Aortic Valve The aortic valve is grossly normal. There is no aortic valve stenosis. There is a trace amount of aortic regurgitation. Tricuspid Valve The tricuspid valve is not well visualized, but is grossly normal. There is no tricuspid stenosis. There is a trace or physiologic amount of tricuspid regurgitation. Tricuspid regurgitation jet envelope not well defined to measure RV systolic pressure accurately. Pulmonic Valve The pulmonic valve is not well visualized. Great Vessels The aortic root is not well visualized but is probably normal size. The inferior vena cava appeared normal and decreased > 50% with respiration (RAP 5-10 mmHg). Effusions Minimal pericardial effusion. : KATIA PORTILLO > Jeanne Shah
[2018-02-17 18:22] VITALS: BP 114/85
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
== END 2018-02-17 18:38 | disposition home or self-care (01) ==
LOC: ER 12:30 → EH 17:24 → UNDOADMOB 19:16 → EH 19:16 → 4S 20:47
PROVIDERS: ADMIT Internal Medicine Geriatric Medicine; ATTEND Internal Medicine Geriatric Medicine
DX: R07.9 Chest pain, unspecified (principal); E03.9 Hypothyroidism, unspecified; F41.9 Anxiety disorder, unspecified; Z87.891 Personal history of nicotine dependence
CPT/HCPCS: 93005; 99285; 36415 ×3; 82553 ×2; 82550; 83735; 84100 ×2; 85025 ×2; 85027; 80048 ×2; 80053; 84484 ×2; 80061; 93306; 93017; 71045; 78452; 93010; G0378 ×4; A9500; J3490 ×9; J2785; J0280; Q9969

== ENCOUNTER 2018-08-31 13:20 | Emergency (ER) | payer MEDICAID ==
--- NOTE | 2018-08-31 13:59 | ER Document Report ---
ED Medical Screen (RME) - General Chief Complaint: Vaginal Pain Stated Complaint: PELVIC PAIN Time Seen by Provider: 08/31/18 13:53 Mode of Arrival: Ambulatory Information source: Patient Notes: 53-year-old female presents with vaginal pain for 1 week. Patient describes the pain as burning. Patient also reports increased urinary frequency. Patient states that she had a recent diagnosis of herpes and was given Valtrex. Denies any fever, chills, nausea, vomiting. I have greeted and performed a rapid initial assessment of this patient. A comprehensive ED assessment and evaluation of the patient, analysis of test results and completion of medical decision making process we will be contacted by additional ED providers. PHYSICAL EXAMINATION: Vital signs reviewed GENERAL: Well-appearing, well-nourished and in no acute distress. LUNGS: No respiratory distress Musculoskeletal: Normal range of motion NEUROLOGICAL: Normal speech, normal gait. PSYCH: Normal mood, normal affect. SKIN: Warm, Dry, normal turgor, no rashes or lesions noted. TRAVEL OUTSIDE OF THE [place] IN LAST 30 DAYS: No - HPI Onset: Last week Onset/Duration: Persistent Quality of pain: Burning Associated Symptoms: denies: Abdominal pain, Fever Exacerbated by: Denies Relieved by: Denies Similar symptoms previously: Yes Recently seen / treated by doctor: Yes - Related Data Smoking: Quit greater than 1 year Frequency of alcohol use: None Drug Abuse: None Allergies/Adverse Reactions: codeine [Codeine] Allergy (Severe, Verified 02/15/18 12:57) nausea, dizzy Past Medical History - Past Medical History Cardiac Medical History: Reports: Hx Hypertension - high cholesterol Denies: Hx Coronary Artery Disease, Hx Heart Attack Pulmonary Medical History: Reports: Hx Asthma, Hx Bronchitis, Hx Pneumonia - walking pneumonia Denies: Hx COPD Neurological Medical History: Denies: Hx Cerebrovascular Accident, Hx Seizures Endocrine Medical History: Reports: Hx Hypothyroidism Renal/ Medical History: Denies: Hx Peritoneal Dialysis Musculoskeltal Medical History: Reports Hx Arthritis - "mostly in arms", back problems, Reports Hx Musculoskeletal Trauma Psychiatric Medical History: Reports: Hx Depression - ANXIETY Past Surgical History: Reports: Hx Cholecystectomy, Hx Gynecologic Surgery - ovarian cyst removed, batholin cyst removal, Hx Tubal Ligation - Immunizations Immunizations up to date: Yes Hx Diphtheria, Pertussis, Tetanus Vaccination: No History of Influenza Vaccine for 08/2017 - 01/2018 Season: Refused Physical Exam - Vital signs Vitals: Temp Pulse Resp BP Pulse Ox 98.5 F 105 H 18 121/94 H 96 08/31/18 13:30 08/31/18 13:30 08/31/18 13:30 08/31/18 13:30 08/31/18 13:30 Course - Vital Signs Vital signs: Temp Pulse Resp BP Pulse Ox 98.5 F 105 H 18 121/94 H 96 08/31/18 13:30 08/31/18 13:30 08/31/18 13:30 08/31/18 13:30 08/31/18 13:30
[2018-08-31 14:40] LABS: APPEARANCE,URINE SLIGHTLY-CLOUDY; BILIRUBIN,URINE NEGATIVE (NEGATIVE); COLOR,URINE YELLOW; GLUCOSE, URINE NEGATIVE (NEGATIVE); KETONES,URINE NEGATIVE (NEGATIVE); LEUKOCYTE ESTERASE,URINE NEGATIVE (NEGATIVE); NITRITE,URINE NEGATIVE (NEGATIVE); PROTEIN,URINE NEGATIVE (NEGATIVE); URINE SPECIFIC GRAVITY 1.023; UROBILINOGEN,URINE NEGATIVE mg/dL (<2.0)
--- NOTE | 2018-08-31 16:15 | ER Document Report ---
ED General - General Chief Complaint: Vaginal Pain Stated Complaint: PELVIC PAIN Time Seen by Provider: 08/31/18 13:53 Mode of Arrival: Ambulatory Information source: Patient Notes: 53-year-old female presents the emergency department complaints of vaginal burning for the last week. Patient states that the pain is located on the vulva as well as inside the vagina. She denies any alleviating or exacerbating factors. Patient denies any recent intercourse. Patient states that she does have a recent diagnosis of herpes. She states that she was diagnosed with this a month ago and took Valtrex. Patient is unsure if she is having another outbreak. She is not taking any medication for the current symptoms. Patient states that she is also having increased urinary frequency. She denies any dysuria, increased urgency, vaginal bleeding, vaginal discharge. She denies any abdominal pain, nausea, vomiting, diarrhea, constipation. TRAVEL OUTSIDE OF THE [place] IN LAST 30 DAYS: No - HPI Onset: Last week Onset/Duration: Gradual Quality of pain: Burning Severity: Mild Associated symptoms: None Exacerbated by: Denies Relieved by: Denies Similar symptoms previously: Yes Recently seen / treated by doctor: Yes - Related Data Allergies/Adverse Reactions: codeine [Codeine] Allergy (Severe, Verified 02/15/18 12:57) nausea, dizzy Past Medical History - General Information source: Patient - Social History Smoking Status: Former Smoker Frequency of alcohol use: None Drug Abuse: None Family History: CAD, Hyperlipidemia, Hypertension, Malignancy - MOTHER - LIVER CANCER Patient has suicidal ideation: No Patient has homicidal ideation: No - Past Medical History Cardiac Medical History: Reports: Hx Hypertension - high cholesterol Denies: Hx Coronary Artery Disease, Hx Heart Attack Pulmonary Medical History: Reports: Hx Asthma, Hx Bronchitis, Hx Pneumonia - walking pneumonia Denies: Hx COPD Neurological Medical History: Denies: Hx Cerebrovascular Accident, Hx Seizures Endocrine Medical History: Reports: Hx Hypothyroidism Renal/ Medical History: Denies: Hx Peritoneal Dialysis Musculoskeletal Medical History: Reports Hx Arthritis - "mostly in arms", back problems, Reports Hx Musculoskeletal Trauma Psychiatric Medical History: Reports: Hx Depression - ANXIETY Past Surgical History: Reports: Hx Cholecystectomy, Hx Gynecologic Surgery - ovarian cyst removed, batholin cyst removal, Hx Tubal Ligation - Immunizations Immunizations up to date: Yes Hx Diphtheria, Pertussis, Tetanus Vaccination: No Review of Systems - Review of Systems Constitutional: No symptoms reported EENT: No symptoms reported Cardiovascular: No symptoms reported Respiratory: No symptoms reported Gastrointestinal: No symptoms reported Genitourinary: Frequency Female Genitourinary: Other - vaginal burning Musculoskeletal: No symptoms reported Skin: No symptoms reported Hematologic/Lymphatic: No symptoms reported Neurological/Psychological: No symptoms reported -: Yes All other systems reviewed and negative Physical Exam - Vital signs Vitals: Temp Pulse Resp BP Pulse Ox 98.5 F 105 H 18 121/94 H 96 08/31/18 13:30 08/31/18 13:30 08/31/18 13:30 08/31/18 13:30 08/31/18 13:30 - Notes Notes: PHYSICAL EXAMINATION: GENERAL: Well-appearing, well-nourished and in no acute distress. HEAD: Atraumatic, normocephalic. EYES: Pupils equal round and reactive to light, extraocular movements intact, conjunctiva are normal. ENT: Nares patent, oropharynx clear without exudates. Moist mucous membranes. NECK: Normal range of motion, supple without lymphadenopathy LUNGS: Breath sounds clear to auscultation bilaterally and equal. No wheezes rales or rhonchi. HEART: Regular rate and rhythm without murmurs ABDOMEN: Soft, nontender, nondistended abdomen. No guarding, no rebound. No masses appreciated. Female : No lesions appreciated on the vulva, labia, or vagina canal. No vaginal discharge. Cervical os closed. No cervical motion tenderness. Musculoskeletal: Normal range of motion, no pitting or edema. No cyanosis. NEUROLOGICAL: Cranial nerves grossly intact. Normal speech, normal gait. Normal sensory, motor exams PSYCH: Normal mood, normal affect. SKIN: Warm, Dry, normal turgor, no rashes or lesions noted. Course - Re-evaluation Re-evalutation: 08/31/18 17:19 Vaginal exam was done. No lesions appear appreciated. Patient does have a history of herpes. The patient's vaginal burning could be early prodromal symptoms. Urinalysis does not show signs of infection. Trichomonas was negative. No yeast. Patient denies any sexual activity in the last 4 years. She does not want treated for gonorrhea and chlamydia. Results are pending. We will contact the patient with abnormal results. I will refer the patient to an [employer]. Patient has Valtrex at home. I instructed her to start taking this medication and to follow-up with the [employer] this week. She is agreeable with plan of care. - Vital Signs Vital signs: Temp Pulse Resp BP Pulse Ox 98.5 F 105 H 18 121/94 H 96 08/31/18 13:30 08/31/18 13:30 08/31/18 13:30 08/31/18 13:30 08/31/18 13:30 Discharge - Discharge Clinical Impression: Vaginal pain Condition: Good Disposition: HOME, SELF-CARE Instructions: Genital Herpes ([facility]) Referrals: WILLOW MERCADO MD [ACTIVE STAFF] - Follow up as needed
[2018-08-31 16:17] LABS: RBCS (WET MOUNT) NO RBCS SEEN; T.VAGINALIS (WET MOUNT) NO TRICHOMONAS SEEN; WBCS (WET MOUNT) NO WBCS SEEN; YEAST (WET MOUNT) NO YEAST SEEN
[2018-08-31 17:23] VITALS: BP 118/85
[2018-08-31 17:48] LABS: CHLAM PCR NOT DETECTED (NOT DETECT); GON PCR NOT DETECTED (NOT DETECT)
== END 2018-08-31 17:27 | disposition home or self-care (01) ==
LOC: ER 13:20
DX: R10.2 Pelvic and perineal pain (principal); E78.00 Pure hypercholesterolemia, unspecified; Z88.6 Allergy status to analgesic agent; Z90.49 Acquired absence of other specified parts of digestive tract; Z98.51 Tubal ligation status
CPT/HCPCS: 81001; 87210; 87491; 87591; 99283